=== PATIENT | female | born 1970 | race Caucasian/White ===

== ENCOUNTER 2019-09-23 21:00 | Inpatient (IN) ==
[2019-09-23] MEDS ORDERED: Ondansetron ODT 4 MG TAB.RAPDIS SL PRN (22:49)
[2019-09-23] MEDS ORDERED: SUMAtriptan succinate 25 MG TABLET PO PRN (22:49)
[2019-09-24] MEDS: *HR* OxyCODONE Immed Rel 5 MG TABLET PO PRN ×2 (03:26→20:07)
[2019-09-24 08:56] LABS: Basophils # 0.1 K/mcL (0.0-0.2); Basophils % 1.1 %; Eosinophils # 0.3 K/mcL (0.0-0.6); Eosinophils % 2.8 %; Hematocrit 33.3 % (35.3-44.9); Hemoglobin 10.8 g/dL (11.5-15.4); Immature Granulocytes % 2.1 % (0-4); Lymphocytes # 1.4 K/mcL (0.6-4.6); Mean Corpuscular HGB Conc 32.4 g/dL (31.6-35.5); Mean Corpuscular Hemoglobin 30.3 pg (28.0-33.3); Mean Corpuscular Volume 93.5 fL (83.0-100.0); Mean Platelet Volume 10.7 fL (9.4-12.4); Monocytes % 11.1 %; Platelet Count 198 K/mcL (140-400); Red Blood Count 3.56 M/mcL (3.82-4.97); Red Cell Distribution Width 14.2 % (11.5-14.5); Segmented Neutrophils % 66.9 %; White Blood Count 8.9 K/mcL (4.3-11.1)
[2019-09-24] MEDS ORDERED: Aspirin Enteric Coated 81 MG Tablet PO SCH (09:00)
[2019-09-24] MEDS ORDERED: Vortioxetine Hydrobromide [Trintellix] 20 MG PO SCH (09:00)
[2019-09-24] MEDS ORDERED: Valbenazine Tosylate [Ingrezza] 80 MG PO SCH (09:00)
[2019-09-24] MEDS: ARMODAFINIL 150 MG PO SCH (09:14)
[2019-09-24] MEDS: MIRABEGRON 50 MG PO SCH (09:14)
[2019-09-24 09:25] LABS: BUN/Creatinine Ratio 11 (6-26); Blood Urea Nitrogen 7 mg/dL (6-20); Calcium 8.5 mg/dL (8.6-10.3); Carbon Dioxide 30 mEq/L (23-29); Chloride 102 mEq/L (98-107); Glucose 88 mg/dL (70-105); Osmolality,Calculated 281 (280-300); Potassium 3.9 mEq/L (3.5-5.1); Sodium 137 mEq/L (136-145); eGFR For African Americans > 60 (> 60); eGFR For Non-African Americans > 60 (> 60)
[2019-09-24] MEDS: Loratadine 10 MG TABLET PO SCH (09:38)
[2019-09-24] MEDS: Acetaminophen 325 MG TABLET PO PRN (09:39)
[2019-09-24] MEDS: FLUoxetine HCl 10 MG CAPSULE PO SCH (09:39)
[2019-09-24] MEDS: lamoTRIgine 100 MG TABLET PO SCH ×2 (09:39→20:07)
[2019-09-24] MEDS: Furosemide 20 MG TABLET PO SCH (09:40)
[2019-09-24] MEDS: Valbenazine Tosylate [Ingrezza] 40 MG PO SCH (16:32)
[2019-09-25] MEDS: *HR* Enoxaparin 40 MG/0.4 ML SYRINGE SQ SCH (05:36)
[2019-09-25] MEDS: FLUoxetine HCl 10 MG CAPSULE PO SCH (09:36)
[2019-09-25] MEDS: *HR* OxyCODONE Immed Rel 5 MG TABLET PO PRN ×2 (09:36→17:58)
[2019-09-25] MEDS: Loratadine 10 MG TABLET PO SCH (09:36)
[2019-09-25] MEDS: lamoTRIgine 100 MG TABLET PO SCH ×2 (09:37→21:34)
[2019-09-25] MEDS: Aspirin Enteric Coated 81 MG Tablet PO SCH (09:37)
[2019-09-25] MEDS: Furosemide 20 MG TABLET PO SCH (09:37)
[2019-09-25] MEDS: Valbenazine Tosylate [Ingrezza] 40 MG PO SCH (09:38)
[2019-09-25] MEDS: ARMODAFINIL 150 MG PO SCH (09:38)
[2019-09-25] MEDS: MIRABEGRON 50 MG PO SCH (09:38)
[2019-09-25] MEDS: Acetaminophen 325 MG TABLET PO PRN (13:51)
[2019-09-26] MEDS: *HR* Enoxaparin 40 MG/0.4 ML SYRINGE SQ SCH (06:07)
[2019-09-26] MEDS: *HR* OxyCODONE Immed Rel 5 MG TABLET PO PRN ×2 (06:11→20:38)
[2019-09-26] MEDS: Furosemide 20 MG TABLET PO SCH (09:47)
[2019-09-26] MEDS: lamoTRIgine 100 MG TABLET PO SCH ×2 (09:47→20:37)
[2019-09-26] MEDS: FLUoxetine HCl 10 MG CAPSULE PO SCH (09:47)
[2019-09-26] MEDS: Valbenazine Tosylate [Ingrezza] 40 MG PO SCH (09:48)
[2019-09-26] MEDS: MIRABEGRON 50 MG PO SCH (09:48)
[2019-09-26] MEDS: ARMODAFINIL 150 MG PO SCH (09:48)
[2019-09-26] MEDS: Aspirin Enteric Coated 81 MG Tablet PO SCH (09:48)
[2019-09-26] MEDS: Loratadine 10 MG TABLET PO SCH (09:48)
[2019-09-26] MEDS: Acetaminophen 325 MG TABLET PO PRN (11:31)
[2019-09-26] MEDS ORDERED: Furosemide 20 MG TABLET PO STA (11:54)
[2019-09-27] MEDS: *HR* Enoxaparin 40 MG/0.4 ML SYRINGE SQ SCH (05:31)
[2019-09-27] MEDS: Furosemide 20 MG TABLET PO SCH (08:07)
[2019-09-27] MEDS: lamoTRIgine 100 MG TABLET PO SCH ×2 (08:07→22:23)
[2019-09-27] MEDS: Loratadine 10 MG TABLET PO SCH (08:07)
[2019-09-27] MEDS: FLUoxetine HCl 10 MG CAPSULE PO SCH (08:08)
[2019-09-27] MEDS: Aspirin Enteric Coated 81 MG Tablet PO SCH (08:08)
[2019-09-27] MEDS: ARMODAFINIL 150 MG PO SCH (08:26)
[2019-09-27] MEDS: MIRABEGRON 50 MG PO SCH (08:27)
[2019-09-27] MEDS: Valbenazine Tosylate [Ingrezza] 40 MG PO SCH (08:27)
[2019-09-27] MEDS: Acetaminophen 325 MG TABLET PO PRN (13:58)
[2019-09-27] MEDS: *HR* OxyCODONE Immed Rel 5 MG TABLET PO PRN (22:22)
[2019-09-28] MEDS: *HR* OxyCODONE Immed Rel 5 MG TABLET PO PRN ×2 (05:11→18:25)
[2019-09-28] MEDS: *HR* Enoxaparin 40 MG/0.4 ML SYRINGE SQ SCH (05:12)
[2019-09-28] MEDS: ARMODAFINIL 150 MG PO SCH (07:59)
[2019-09-28] MEDS: Valbenazine Tosylate [Ingrezza] 40 MG PO SCH (07:59)
[2019-09-28] MEDS: lamoTRIgine 100 MG TABLET PO SCH ×2 (08:00→19:50)
[2019-09-28] MEDS: FLUoxetine HCl 10 MG CAPSULE PO SCH (08:00)
[2019-09-28] MEDS: Aspirin Enteric Coated 81 MG Tablet PO SCH (08:00)
[2019-09-28] MEDS: Loratadine 10 MG TABLET PO SCH (08:00)
[2019-09-28] MEDS: MIRABEGRON 50 MG PO SCH (08:01)
[2019-09-28] MEDS: Furosemide 20 MG TABLET PO SCH (08:01)
[2019-09-28] MEDS: Acetaminophen 325 MG TABLET PO PRN (23:26)
[2019-09-29] MEDS: *HR* Enoxaparin 40 MG/0.4 ML SYRINGE SQ SCH (06:10)
[2019-09-29] MEDS: Aspirin Enteric Coated 81 MG Tablet PO SCH (08:08)
[2019-09-29] MEDS: lamoTRIgine 100 MG TABLET PO SCH ×2 (08:08→20:05)
[2019-09-29] MEDS: Loratadine 10 MG TABLET PO SCH (08:09)
[2019-09-29] MEDS: Acetaminophen 325 MG TABLET PO PRN ×2 (08:09→16:07)
[2019-09-29] MEDS: FLUoxetine HCl 10 MG CAPSULE PO SCH (08:09)
[2019-09-29] MEDS: Valbenazine Tosylate [Ingrezza] 40 MG PO SCH (08:10)
[2019-09-29] MEDS: ARMODAFINIL 150 MG PO SCH (08:10)
[2019-09-29] MEDS: Furosemide 20 MG TABLET PO SCH (08:10)
[2019-09-29] MEDS: MIRABEGRON 50 MG PO SCH (08:11)
[2019-09-29] MEDS: *HR* OxyCODONE Immed Rel 5 MG TABLET PO PRN (20:05)
[2019-09-30] MEDS: *HR* Enoxaparin 40 MG/0.4 ML SYRINGE SQ SCH (05:30)
[2019-09-30] MEDS: Acetaminophen 325 MG TABLET PO PRN ×2 (05:32→15:38)
[2019-09-30] MEDS: Aspirin Enteric Coated 81 MG Tablet PO SCH (08:36)
[2019-09-30] MEDS: Loratadine 10 MG TABLET PO SCH (08:36)
[2019-09-30] MEDS: FLUoxetine HCl 10 MG CAPSULE PO SCH (08:36)
[2019-09-30] MEDS: Furosemide 20 MG TABLET PO SCH (08:36)
[2019-09-30] MEDS: *HR* OxyCODONE Immed Rel 5 MG TABLET PO PRN ×2 (08:37→20:42)
[2019-09-30] MEDS: lamoTRIgine 100 MG TABLET PO SCH ×2 (08:37→20:44)
[2019-09-30] MEDS: Valbenazine Tosylate [Ingrezza] 40 MG PO SCH (08:40)
[2019-09-30] MEDS: ARMODAFINIL 150 MG PO SCH (08:40)
[2019-09-30] MEDS: MIRABEGRON 50 MG PO SCH (08:41)
[2019-10-01] MEDS: Acetaminophen 325 MG TABLET PO PRN ×2 (06:20→17:00)
[2019-10-01] MEDS: *HR* Enoxaparin 40 MG/0.4 ML SYRINGE SQ SCH (06:21)
[2019-10-01] MEDS: FLUoxetine HCl 10 MG CAPSULE PO SCH (08:31)
[2019-10-01] MEDS: lamoTRIgine 100 MG TABLET PO SCH ×2 (08:32→21:42)
[2019-10-01] MEDS: Furosemide 20 MG TABLET PO SCH (08:32)
[2019-10-01] MEDS: Loratadine 10 MG TABLET PO SCH (08:32)
[2019-10-01] MEDS: Aspirin Enteric Coated 81 MG Tablet PO SCH (08:32)
[2019-10-01] MEDS: MIRABEGRON 50 MG PO SCH (08:33)
[2019-10-01] MEDS: Nystatin POWDER 30 GM BOTTLE TP SCH ×2 (16:59→21:43)
[2019-10-01] MEDS: Armodafinil [Nuvigil] 150 MG PO SCH (17:00)
[2019-10-01] MEDS: Mirabegron [Myrbetriq] 50 MG PO SCH (17:00)
[2019-10-01] MEDS: Valbenazine Tosylate [Ingrezza] 40 MG PO SCH (17:00)
[2019-10-01] MEDS: *HR* OxyCODONE Immed Rel 5 MG TABLET PO PRN (21:40)
[2019-10-02 06:36] VITALS: BP 102/61
[2019-10-02] MEDS: *HR* Enoxaparin 40 MG/0.4 ML SYRINGE SQ SCH (06:51)
[2019-10-02] MEDS: Acetaminophen 325 MG TABLET PO PRN (08:04)
[2019-10-02] MEDS: Loratadine 10 MG TABLET PO SCH (08:04)
[2019-10-02] MEDS: Aspirin Enteric Coated 81 MG Tablet PO SCH (08:05)
[2019-10-02] MEDS: lamoTRIgine 100 MG TABLET PO SCH (08:05)
[2019-10-02] MEDS: Furosemide 20 MG TABLET PO SCH (08:05)
[2019-10-02] MEDS: FLUoxetine HCl 10 MG CAPSULE PO SCH (08:05)
[2019-10-02] MEDS: Nystatin POWDER 30 GM BOTTLE TP SCH (08:06)
[2019-10-02] MEDS: Valbenazine Tosylate [Ingrezza] 40 MG PO SCH (08:07)
[2019-10-02] MEDS: Armodafinil [Nuvigil] 150 MG PO SCH (08:07)
[2019-10-02] MEDS: Mirabegron [Myrbetriq] 50 MG PO SCH (08:07)
== END 2019-10-02 12:36 | disposition home health service (06) | DRG 561 ==
LOC: INPPIK 23:20
PROVIDERS: ADMIT Family Medicine; ATTEND Family Medicine

== ENCOUNTER 2020-03-25 13:18 | Observation (INO) ==
[2020-03-25 14:11] LABS: Basophils # 0.1 K/mcL (0.0-0.2); Basophils % 0.5 %; Eosinophils % 0.2 %; Hematocrit 39.8 % (35.3-44.9); Hemoglobin 12.5 g/dL (11.5-15.4); Immature Granulocytes % 1.1 % (0-4); Lymphocytes # 0.5 K/mcL (0.6-4.6); Lymphocytes % 4.4 %; Mean Corpuscular HGB Conc 31.4 g/dL (31.6-35.5); Mean Corpuscular Hemoglobin 35.2 pg (28.0-33.3); Mean Corpuscular Volume 112.1 fL (83.0-100.0); Mean Platelet Volume 9.6 fL (9.4-12.4); Monocytes # 0.5 K/mcL (0.0-1.3); Monocytes % 4.5 %; Neutrophils # 9.7 K/mcL (1.6-8.9); Platelet Count 284 K/mcL (140-400); Red Blood Count 3.55 M/mcL (3.82-4.97); Red Cell Distribution Width 17.4 % (11.5-14.5); Segmented Neutrophils % 89.3 %; White Blood Count 10.9 K/mcL (4.3-11.1)
[2020-03-25 14:24] LABS: Bilirubin,Urine Small (Negative); Blood,Urine Moderate (Negative); Clarity,Urine Clear (Clear); Color,Urine Yellow (Yellow); Glucose,Urine (UA) Normal (Normal); Ketones,Urine >=160 mg/dL (Negative); Leukocyte Esterase,Urine Negative (Negative); Nitrite,Urine Negative (Negative); PH,Urine 5.5 pH Units (5.0-8.0); Protein,Urine Negative (Neg-Trace); Specific Gravity,Urine >= 1.030 (1.010-1.025); Urobilinogen,Urine Normal (Normal)
[2020-03-25 14:28] LABS: Macrocytosis Present (Not Present); Rouleaux Present (Not Present)
[2020-03-25 14:32] LABS: Bacteria,Urine Few per hpf (None-Few); Hyaline Casts,Urine Many per lpf (None Seen); Mucus,Urine Moderate per lpf (None-Few); RBC,Urine 0-3 per hpf (0-3)
[2020-03-25 14:34] LABS: Activated Partial Thrombo Time 25.1 Seconds (26.0-36.0); INR 1.1; Prothrombin Time 12.9 Seconds (9.4-12.1)
[2020-03-25 14:35] LABS: Troponin I < 0.03 ng/mL (< 0.04)
[2020-03-25 14:41] LABS: Alanine Aminotransferase 52 Units/L (7-52); Albumin 4.2 g/dL (3.5-5.7); Albumin/Globulin Ratio 1.4 (1.1-2.2); Alkaline Phosphatase 85 Units/L (34-104); Aspartate Amino Transferase 126 Units/L (13-39); BUN/Creatinine Ratio 22 (6-26); Bilirubin,Direct 0.1 mg/dL (0.0-0.2); Bilirubin,Indirect 0.3 mg/dL (0.0-1.0); Bilirubin,Total 0.4 mg/dL (0.3-1.0); Blood Urea Nitrogen 20 mg/dL (6-20); Carbon Dioxide 8 mEq/L (23-29); Chloride 96 mEq/L (98-107); Ethanol < 10 mg/dL (Less than 10); Globulin 2.9 g/dL (2.4-3.5); Glucose 68 mg/dL (70-105); Lipase 13 Units/L (11-82); Osmolality,Calculated 289 (280-300); Potassium 4.1 mEq/L (3.5-5.1); Sodium 139 mEq/L (136-145); Total Protein 7.1 g/dL (6.4-8.9); eGFR For African Americans > 60 (> 60); eGFR For Non-African Americans > 60 (> 60)
[2020-03-25 15:22] LABS: Amphetamine Screen,Urine Negative ng/mL (Cutoff=1000); Barbiturate Screen,Urine Negative ng/mL (Cutoff=200); Benzodiazepines Screen,Urine Negative ng/mL (Cutoff=200); Cannabinoid Screen,Urine Negative ng/mL (Cutoff = 50); Cocaine Screen,Urine Negative ng/mL (Cutoff= 300); Opiate Screen,Urine Negative ng/mL (Cutoff=300); Phencyclidine Screen,Urine Negative ng/mL (Cutoff=25)
[2020-03-25 15:59] LABS: VBG HCO3 7 mEq/L (21-27); VBG PCO2 20 mmHg (41-51); VBG PH 7.18 pH Units (7.32-7.42); VBG PO2 49 mmHg (25-50)
[2020-03-25 16:12] LABS: BUN/Creatinine Ratio 22 (6-26); Blood Urea Nitrogen 21 mg/dL (6-20); Calcium 8.8 mg/dL (8.6-10.3); Carbon Dioxide 7 mEq/L (23-29); Chloride 96 mEq/L (98-107); Glucose 61 mg/dL (70-105); Osmolality,Calculated 291 (280-300); Sodium 140 mEq/L (136-145); eGFR For African Americans > 60 (> 60); eGFR For Non-African Americans > 60 (> 60)
[2020-03-25] MEDS ORDERED: D5% in Water 1,000 ML IVC PRN (16:36)
[2020-03-25] MEDS ORDERED: Dextrose Gel 15 GM/37.5 ML TUBE PO PRN ×2 (16:36)
[2020-03-25] MEDS ORDERED: *HR* Dextrose 50 % in Water (Vial) 50 ML VIAL IVP PRN (16:36)
[2020-03-25] MEDS ORDERED: Naloxone 0.4 MG/ML INJ IVP PRN (16:36)
[2020-03-25] MEDS: D5% in 0.9% NACL 1,000 ML IVC SCH ×2 (16:37→21:12)
[2020-03-25 19:35] LABS: BUN/Creatinine Ratio 22 (6-26); Blood Urea Nitrogen 21 mg/dL (6-20); Calcium 8.5 mg/dL (8.6-10.3); Carbon Dioxide 7 mEq/L (23-29); Chloride 99 mEq/L (98-107); Glucose 88 mg/dL (70-105); Osmolality,Calculated 296 (280-300); Potassium 3.8 mEq/L (3.5-5.1); Sodium 142 mEq/L (136-145); eGFR For African Americans > 60 (> 60); eGFR For Non-African Americans > 60 (> 60)
[2020-03-25] MEDS: tiZANidine 4 MG TABLET PO SCH (21:00)
[2020-03-25] MEDS: lamoTRIgine 100 MG TABLET PO SCH (21:01)
[2020-03-25] MEDS: Ringers Solution, Lactated 1,000 ML IVC SCH (21:04)
[2020-03-25] MEDS: Ondansetron 4 MG/2 ML VIAL IVP PRN (21:28)
[2020-03-25 21:41] LABS: Estimated Average Glucose 94 mg/dl; Hemoglobin A1C 4.9 %
[2020-03-26] MEDS: D5% in 0.9% NACL 1,000 ML IVC SCH ×2 (00:33→03:17)
[2020-03-26 06:22] LABS: Hematocrit 30.1 % (35.3-44.9); Hemoglobin 9.7 g/dL (11.5-15.4); Mean Corpuscular HGB Conc 32.2 g/dL (31.6-35.5); Mean Corpuscular Hemoglobin 34.8 pg (28.0-33.3); Mean Corpuscular Volume 107.9 fL (83.0-100.0); Platelet Count 246 K/mcL (140-400); Red Blood Count 2.79 M/mcL (3.82-4.97); Red Cell Distribution Width 17.2 % (11.5-14.5); White Blood Count 7.5 K/mcL (4.3-11.1)
[2020-03-26 06:23] LABS: VBG HCO3 11 mEq/L (21-27); VBG PCO2 22 mmHg (41-51); VBG PH 7.32 pH Units (7.32-7.42); VBG PO2 202 mmHg (25-50)
[2020-03-26 06:57] LABS: BUN/Creatinine Ratio 20 (6-26); Blood Urea Nitrogen 18 mg/dL (6-20); Calcium 8.4 mg/dL (8.6-10.3); Carbon Dioxide 11 mEq/L (23-29); Chloride 104 mEq/L (98-107); Glucose 59 mg/dL (70-105); Osmolality,Calculated 294 (280-300); Phosphorous 2.9 mg/dL (2.7-4.5); Potassium 3.4 mEq/L (3.5-5.1); Sodium 142 mEq/L (136-145); eGFR For African Americans > 60 (> 60); eGFR For Non-African Americans > 60 (> 60)
[2020-03-26] MEDS: lamoTRIgine 100 MG TABLET PO SCH ×2 (08:30→20:49)
[2020-03-26] MEDS: FLUoxetine HCl 10 MG CAPSULE PO SCH (08:30)
[2020-03-26] MEDS: tiZANidine 4 MG TABLET PO SCH ×5 (08:30→20:49)
[2020-03-26] MEDS: (Valbenazine Tosylate [Ingrezza] 80 MG) PO SCH (08:30)
[2020-03-26] MEDS ORDERED: ARMODAFINIL 150 MG PO SCH (09:00)
[2020-03-26] MEDS ORDERED: 0.9 % Sodium Chloride 500 ML ONE (10:29)
[2020-03-26] MEDS: Ringers Solution, Lactated 1,000 ML IVC SCH (10:35)
[2020-03-26] MEDS ORDERED: 0.9 % Sodium Chloride 500 ML IVC ONE (10:37)
[2020-03-26] MEDS: Ondansetron 4 MG/2 ML VIAL IVP PRN (12:28)
[2020-03-27] MEDS: Acetaminophen 325 MG TABLET PO PRN (06:49)
[2020-03-27 07:59] LABS: Hematocrit 28.6 % (35.3-44.9); Hemoglobin 9.5 g/dL (11.5-15.4); Mean Corpuscular HGB Conc 33.2 g/dL (31.6-35.5); Mean Corpuscular Hemoglobin 35.4 pg (28.0-33.3); Mean Corpuscular Volume 106.7 fL (83.0-100.0); Mean Platelet Volume 8.9 fL (9.4-12.4); Platelet Count 184 K/mcL (140-400); Red Blood Count 2.68 M/mcL (3.82-4.97); Red Cell Distribution Width 17.5 % (11.5-14.5); White Blood Count 5.7 K/mcL (4.3-11.1)
[2020-03-27] MEDS: lamoTRIgine 100 MG TABLET PO SCH ×2 (07:59→20:29)
[2020-03-27] MEDS: FLUoxetine HCl 10 MG CAPSULE PO SCH (07:59)
[2020-03-27] MEDS: ARMODAFINIL 150 MG PO SCH (08:00)
[2020-03-27] MEDS: (Valbenazine Tosylate [Ingrezza] 80 MG) PO SCH (08:00)
[2020-03-27] MEDS: tiZANidine 4 MG TABLET PO SCH ×4 (08:00→20:30)
[2020-03-27 08:18] LABS: BUN/Creatinine Ratio 23 (6-26); Blood Urea Nitrogen 18 mg/dL (6-20); Calcium 8.9 mg/dL (8.6-10.3); Carbon Dioxide 19 mEq/L (23-29); Chloride 106 mEq/L (98-107); Glucose 90 mg/dL (70-105); Magnesium 2.1 mg/dL (1.6-2.6); Osmolality,Calculated 295 (280-300); Potassium 3.3 mEq/L (3.5-5.1); Sodium 142 mEq/L (136-145); eGFR For African Americans > 60 (> 60); eGFR For Non-African Americans > 60 (> 60)
[2020-03-27] MEDS ORDERED: Potassium Chloride Elixir 20 MEQ/15 ML UDC PO ONE (08:44)
[2020-03-27] MEDS: Ringers Solution, Lactated 1,000 ML IVC SCH ×2 (14:43→23:35)
[2020-03-28] MEDS: Acetaminophen 325 MG TABLET PO PRN (03:20)
[2020-03-28 07:05] LABS: Hematocrit 30.2 % (35.3-44.9); Hemoglobin 9.9 g/dL (11.5-15.4); Mean Corpuscular HGB Conc 32.8 g/dL (31.6-35.5); Mean Corpuscular Volume 106.7 fL (83.0-100.0); Mean Platelet Volume 9.4 fL (9.4-12.4); Platelet Count 180 K/mcL (140-400); Red Blood Count 2.83 M/mcL (3.82-4.97); Red Cell Distribution Width 17.4 % (11.5-14.5)
[2020-03-28 07:27] LABS: BUN/Creatinine Ratio 28 (6-26); Blood Urea Nitrogen 18 mg/dL (6-20); Calcium 8.9 mg/dL (8.6-10.3); Carbon Dioxide 27 mEq/L (23-29); Chloride 105 mEq/L (98-107); Glucose 98 mg/dL (70-105); Osmolality,Calculated 292 (280-300); Potassium 4.1 mEq/L (3.5-5.1); Sodium 140 mEq/L (136-145); eGFR For African Americans > 60 (> 60); eGFR For Non-African Americans > 60 (> 60)
[2020-03-28 07:39] LABS: Thyroid Stimulating Hormone 11.513 mcIU/mL (0.340-5.600)
[2020-03-28] MEDS: Ringers Solution, Lactated 1,000 ML IVC SCH ×3 (07:46→22:38)
[2020-03-28] MEDS: (Valbenazine Tosylate [Ingrezza] 80 MG) PO SCH (07:48)
[2020-03-28] MEDS: tiZANidine 4 MG TABLET PO SCH ×3 (07:48→21:17)
[2020-03-28] MEDS: ARMODAFINIL 150 MG PO SCH (07:48)
[2020-03-28] MEDS: FLUoxetine HCl 10 MG CAPSULE PO SCH (07:48)
[2020-03-28] MEDS: lamoTRIgine 100 MG TABLET PO SCH ×2 (07:48→21:18)
[2020-03-28 13:28] LABS: Triiodothyronine (T3) Free 1.52 pg/mL (2.50-3.90)
[2020-03-29] MEDS: Acetaminophen 325 MG TABLET PO PRN (02:03)
[2020-03-29] MEDS: Ringers Solution, Lactated 1,000 ML IVC SCH (06:08)
[2020-03-29] MEDS: ARMODAFINIL 150 MG PO SCH (08:31)
[2020-03-29] MEDS: (Valbenazine Tosylate [Ingrezza] 80 MG) PO SCH (08:31)
[2020-03-29] MEDS: FLUoxetine HCl 10 MG CAPSULE PO SCH (08:32)
[2020-03-29] MEDS: lamoTRIgine 100 MG TABLET PO SCH (08:32)
[2020-03-29] MEDS: tiZANidine 4 MG TABLET PO SCH ×2 (08:32→14:27)
[2020-03-29] MEDS ORDERED: *HR* HYDROcodone/Acet 5/325 mg TABLET PO PRN (09:02)
[2020-03-29 14:07] VITALS: BP 97/61
[2020-03-29] MEDS ORDERED: *HR* Enoxaparin 100 MG/ML SYRINGE SQ SCH (18:00)
== END 2020-03-29 18:07 | disposition other institution (70) ==
LOC: INPPIK 13:18 → EMEROOPIK 13:18 → INPPIK 17:05
PROVIDERS: ADMIT Family Medicine; ATTEND Family Medicine

== ENCOUNTER 2020-03-29 17:00 | Inpatient (IN) ==
[2020-03-29] MEDS ORDERED: Ondansetron 4 MG/2 ML VIAL IVP PRN (18:53)
[2020-03-29] MEDS: *HR* HYDROcodone/Acet 5/325 mg TABLET PO PRN (21:38)
[2020-03-29] MEDS: tiZANidine 4 MG TABLET PO SCH (21:39)
[2020-03-29] MEDS: lamoTRIgine 100 MG TABLET PO SCH (21:39)
[2020-03-30] MEDS: *HR* HYDROcodone/Acet 5/325 mg TABLET PO PRN ×2 (05:37→23:51)
[2020-03-30] MEDS: *HR* Enoxaparin 100 MG/ML SYRINGE SQ SCH ×2 (05:38→16:44)
[2020-03-30 06:55] LABS: Basophils % 0.9 %; Eosinophils # 0.1 K/mcL (0.0-0.6); Eosinophils % 1.1 %; Hematocrit 30.3 % (35.3-44.9); Hemoglobin 9.9 g/dL (11.5-15.4); Immature Granulocytes % 1.9 % (0-4); Lymphocytes # 0.8 K/mcL (0.6-4.6); Lymphocytes % 16.2 %; Mean Corpuscular HGB Conc 32.7 g/dL (31.6-35.5); Mean Corpuscular Hemoglobin 34.5 pg (28.0-33.3); Mean Corpuscular Volume 105.6 fL (83.0-100.0); Mean Platelet Volume 10.6 fL (9.4-12.4); Monocytes # 0.2 K/mcL (0.0-1.3); Monocytes % 3.4 %; Neutrophils # 3.6 K/mcL (1.6-8.9); Platelet Count 186 K/mcL (140-400); Red Blood Count 2.87 M/mcL (3.82-4.97); Segmented Neutrophils % 76.5 %; White Blood Count 4.6 K/mcL (4.3-11.1)
[2020-03-30 07:04] LABS: INR 1.3; Prothrombin Time 14.9 Seconds (9.4-12.1)
[2020-03-30 07:16] LABS: BUN/Creatinine Ratio 36 (6-26); Blood Urea Nitrogen 16 mg/dL (6-20); Calcium 8.4 mg/dL (8.6-10.3); Carbon Dioxide 28 mEq/L (23-29); Chloride 101 mEq/L (98-107); Glucose 88 mg/dL (70-105); Osmolality,Calculated 287 (280-300); Potassium 3.8 mEq/L (3.5-5.1); Sodium 138 mEq/L (136-145); eGFR For African Americans > 60 (> 60); eGFR For Non-African Americans > 60 (> 60)
[2020-03-30] MEDS: (Valbenazine Tosylate [Ingrezza] 80 MG) PO SCH (08:46)
[2020-03-30] MEDS: FLUoxetine HCl 10 MG CAPSULE PO SCH (08:47)
[2020-03-30] MEDS: Acetaminophen 325 MG TABLET PO PRN (08:47)
[2020-03-30] MEDS: tiZANidine 4 MG TABLET PO SCH ×3 (08:47→19:55)
[2020-03-30] MEDS: lamoTRIgine 100 MG TABLET PO SCH ×2 (08:48→19:55)
[2020-03-30] MEDS ORDERED: 0.9 % Sodium Chloride 500 ML IVC ONE (18:34)
[2020-03-31] MEDS: lamoTRIgine 100 MG TABLET PO SCH ×2 (08:11→20:16)
[2020-03-31] MEDS: (Valbenazine Tosylate [Ingrezza] 80 MG) PO SCH (08:12)
[2020-03-31] MEDS: FLUoxetine HCl 10 MG CAPSULE PO SCH (08:12)
[2020-03-31] MEDS: tiZANidine 4 MG TABLET PO SCH ×3 (08:12→20:16)
[2020-03-31 15:34] LABS: Basophils % 0.7 %; Eosinophils % 0.7 %; Hematocrit 31.4 % (35.3-44.9); Hemoglobin 10.4 g/dL (11.5-15.4); Immature Granulocytes % 3.3 % (0-4); Lymphocytes # 0.9 K/mcL (0.6-4.6); Lymphocytes % 15.3 %; Mean Corpuscular HGB Conc 33.1 g/dL (31.6-35.5); Mean Corpuscular Hemoglobin 34.9 pg (28.0-33.3); Mean Corpuscular Volume 105.4 fL (83.0-100.0); Mean Platelet Volume 9.6 fL (9.4-12.4); Monocytes # 0.2 K/mcL (0.0-1.3); Monocytes % 3.6 %; Neutrophils # 4.4 K/mcL (1.6-8.9); Platelet Count 170 K/mcL (140-400); Red Blood Count 2.98 M/mcL (3.82-4.97); Red Cell Distribution Width 16.5 % (11.5-14.5); Segmented Neutrophils % 76.4 %; White Blood Count 5.8 K/mcL (4.3-11.1)
[2020-03-31 15:46] LABS: BUN/Creatinine Ratio 41 (6-26); Blood Urea Nitrogen 16 mg/dL (6-20); Calcium 8.5 mg/dL (8.6-10.3); Carbon Dioxide 24 mEq/L (23-29); Chloride 98 mEq/L (98-107); Glucose 95 mg/dL (70-105); Osmolality,Calculated 277 (280-300); Sodium 133 mEq/L (136-145); eGFR For African Americans > 60 (> 60); eGFR For Non-African Americans > 60 (> 60)
[2020-04-01] MEDS: Acetaminophen 325 MG TABLET PO PRN (01:11)
[2020-04-01 05:56] LABS: Basophils # 0.1 K/mcL (0.0-0.2); Basophils % 1.1 %; Eosinophils # 0.1 K/mcL (0.0-0.6); Eosinophils % 1.1 %; Hematocrit 30.6 % (35.3-44.9); Immature Granulocytes % 3.9 % (0-4); Lymphocytes # 0.7 K/mcL (0.6-4.6); Lymphocytes % 15.1 %; Mean Corpuscular HGB Conc 32.7 g/dL (31.6-35.5); Mean Corpuscular Hemoglobin 35.1 pg (28.0-33.3); Mean Corpuscular Volume 107.4 fL (83.0-100.0); Mean Platelet Volume 10.4 fL (9.4-12.4); Monocytes # 0.2 K/mcL (0.0-1.3); Monocytes % 3.5 %; Neutrophils # 3.4 K/mcL (1.6-8.9); Platelet Count 171 K/mcL (140-400); Red Blood Count 2.85 M/mcL (3.82-4.97); Red Cell Distribution Width 16.7 % (11.5-14.5); Segmented Neutrophils % 75.3 %; White Blood Count 4.6 K/mcL (4.3-11.1)
[2020-04-01 06:00] LABS: Bilirubin,Urine Moderate (Negative); Blood,Urine Moderate (Negative); Clarity,Urine Slightly Cloudy (Clear); Color,Urine Dark Yellow (Yellow); Glucose,Urine (UA) Normal (Normal); Ketones,Urine Trace mg/dL (Negative); Leukocyte Esterase,Urine Negative (Negative); Nitrite,Urine Negative (Negative); PH,Urine 5.5 pH Units (5.0-8.0); Protein,Urine 100 mg/dL (Neg-Trace); Specific Gravity,Urine >= 1.030 (1.010-1.025); Urobilinogen,Urine Normal (Normal)
[2020-04-01 06:08] LABS: Bacteria,Urine Many per hpf (None-Few); WBC,Urine 15-30 per hpf (0-3)
[2020-04-01 06:17] LABS: BUN/Creatinine Ratio 44 (6-26); Blood Urea Nitrogen 16 mg/dL (6-20); Calcium 8.5 mg/dL (8.6-10.3); Carbon Dioxide 25 mEq/L (23-29); Chloride 99 mEq/L (98-107); Glucose 82 mg/dL (70-105); Osmolality,Calculated 278 (280-300); Potassium 4.1 mEq/L (3.5-5.1); Sodium 134 mEq/L (136-145); eGFR For African Americans > 60 (> 60); eGFR For Non-African Americans > 60 (> 60)
[2020-04-01] MEDS ORDERED: 0.9 % Sodium Chloride 500 ML IVC ONE (07:23)
[2020-04-01] MEDS: FLUoxetine HCl 10 MG CAPSULE PO SCH (07:44)
[2020-04-01] MEDS: lamoTRIgine 100 MG TABLET PO SCH ×2 (07:44→20:10)
[2020-04-01] MEDS: cefTRIAXone 2,000 MG in 0.9 % Sodium Chloride Mini Bag 100 ML IVPB SCH (07:44)
[2020-04-01] MEDS: (Valbenazine Tosylate [Ingrezza] 80 MG) PO SCH (07:45)
[2020-04-01] MEDS: tiZANidine 4 MG TABLET PO SCH ×3 (07:45→20:09)
[2020-04-01] MEDS: *HR* HYDROcodone/Acet 5/325 mg TABLET PO PRN (20:09)
[2020-04-02] MEDS: (Valbenazine Tosylate [Ingrezza] 80 MG) PO SCH (08:20)
[2020-04-02] MEDS: *HR* HYDROcodone/Acet 5/325 mg TABLET PO PRN ×2 (08:25→21:37)
[2020-04-02] MEDS: tiZANidine 4 MG TABLET PO SCH ×3 (08:25→21:36)
[2020-04-02] MEDS: FLUoxetine HCl 10 MG CAPSULE PO SCH (08:25)
[2020-04-02] MEDS: lamoTRIgine 100 MG TABLET PO SCH ×2 (08:26→21:37)
[2020-04-02] MEDS: cefTRIAXone 2,000 MG in 0.9 % Sodium Chloride Mini Bag 100 ML IVPB SCH ×2 (08:26→10:00)
[2020-04-02] MEDS: cephALEXin 500 MG CAPSULE PO SCH ×3 (11:34→21:42)
[2020-04-03] MEDS: lamoTRIgine 100 MG TABLET PO SCH ×2 (08:42→21:27)
[2020-04-03] MEDS: FLUoxetine HCl 10 MG CAPSULE PO SCH (08:42)
[2020-04-03] MEDS: Ondansetron ODT 4 MG TAB.RAPDIS SL PRN ×2 (08:43→15:56)
[2020-04-03] MEDS: (Valbenazine Tosylate [Ingrezza] 80 MG) PO SCH (08:43)
[2020-04-03] MEDS: tiZANidine 4 MG TABLET PO SCH ×3 (08:43→21:27)
[2020-04-03] MEDS: *HR* HYDROcodone/Acet 5/325 mg TABLET PO PRN ×2 (08:43→21:27)
[2020-04-03] MEDS: cephALEXin 500 MG CAPSULE PO SCH ×3 (08:43→21:27)
[2020-04-03 09:36] LABS: Basophils % 0.7 %; Eosinophils % 0.7 %; Hemoglobin 10.2 g/dL (11.5-15.4); Immature Granulocytes % 6.3 % (0-4); Lymphocytes % 16.7 %; Mean Corpuscular HGB Conc 32.9 g/dL (31.6-35.5); Mean Corpuscular Hemoglobin 34.5 pg (28.0-33.3); Mean Corpuscular Volume 104.7 fL (83.0-100.0); Monocytes # 0.3 K/mcL (0.0-1.3); Monocytes % 5.2 %; Neutrophils # 4.1 K/mcL (1.6-8.9); Platelet Count 160 K/mcL (140-400); Red Blood Count 2.96 M/mcL (3.82-4.97); Segmented Neutrophils % 70.4 %; White Blood Count 5.8 K/mcL (4.3-11.1)
[2020-04-04] MEDS: lamoTRIgine 100 MG TABLET PO SCH ×2 (08:25→21:00)
[2020-04-04] MEDS: FLUoxetine HCl 10 MG CAPSULE PO SCH (08:25)
[2020-04-04] MEDS: tiZANidine 4 MG TABLET PO SCH ×3 (08:26→21:00)
[2020-04-04] MEDS: Ondansetron ODT 4 MG TAB.RAPDIS SL PRN (08:26)
[2020-04-04] MEDS: (Valbenazine Tosylate [Ingrezza] 80 MG) PO SCH (08:26)
[2020-04-04] MEDS: cephALEXin 500 MG CAPSULE PO SCH ×3 (08:26→21:00)
[2020-04-04] MEDS: Acetaminophen 325 MG TABLET PO PRN (15:36)
[2020-04-05] MEDS: FLUoxetine HCl 10 MG CAPSULE PO SCH (07:50)
[2020-04-05] MEDS: (Valbenazine Tosylate [Ingrezza] 80 MG) PO SCH (07:50)
[2020-04-05] MEDS: lamoTRIgine 100 MG TABLET PO SCH ×2 (07:50→20:15)
[2020-04-05] MEDS: tiZANidine 4 MG TABLET PO SCH ×3 (07:50→20:17)
[2020-04-05] MEDS: Ondansetron ODT 4 MG TAB.RAPDIS SL PRN ×2 (07:53→15:53)
[2020-04-05] MEDS: *HR* HYDROcodone/Acet 5/325 mg TABLET PO PRN (20:17)
[2020-04-06] MEDS ORDERED: Sennosides 8.6 MG TABLET PO PRN (00:56)
[2020-04-06] MEDS: *HR* HYDROcodone/Acet 5/325 mg TABLET PO PRN (08:20)
[2020-04-06] MEDS: (Valbenazine Tosylate [Ingrezza] 80 MG) PO SCH (08:20)
[2020-04-06] MEDS: tiZANidine 4 MG TABLET PO SCH ×3 (08:20→20:21)
[2020-04-06] MEDS: lamoTRIgine 100 MG TABLET PO SCH ×2 (08:20→20:21)
[2020-04-06] MEDS: FLUoxetine HCl 10 MG CAPSULE PO SCH (08:20)
[2020-04-06] MEDS: Ondansetron ODT 4 MG TAB.RAPDIS SL PRN (08:26)
[2020-04-07] MEDS ORDERED: hydrOXYzine pamoate 25 MG CAPSULE PO PRN (01:40)
[2020-04-07] MEDS ORDERED: *HR* Enoxaparin 40 MG/0.4 ML SYRINGE SQ SCH (06:00)
[2020-04-07 06:39] VITALS: BP 110/76
[2020-04-07] MEDS: lamoTRIgine 100 MG TABLET PO SCH (08:32)
[2020-04-07] MEDS: (Valbenazine Tosylate [Ingrezza] 80 MG) PO SCH (08:32)
[2020-04-07] MEDS: tiZANidine 4 MG TABLET PO SCH (08:32)
[2020-04-07] MEDS: Ondansetron ODT 4 MG TAB.RAPDIS SL PRN (08:35)
[2020-04-07] MEDS ORDERED: FLUoxetine 20 MG CAPSULE PO SCH ×2 (09:00→13:00)
[2020-04-07] MEDS ORDERED: *HR* Promethazine 25 MG/ML VIAL IM PRN (12:30)
[2020-04-07] MEDS ORDERED: lamoTRIgine 100 MG TABLET PO SCH (13:00)
[2020-04-07] MEDS ORDERED: tiZANidine 4 MG TABLET PO SCH (13:00)
== END 2020-04-07 16:40 | disposition short-term general hospital (02) | DRG 945 ==
LOC: INPPIK 18:29
PROVIDERS: ADMIT Family Medicine; ATTEND Family Medicine